=== PATIENT | female | born 1980 | race Caucasian/White ===

== ENCOUNTER → 2016-12-16 | Outpatient (CLI) | payer BC ==
--- NOTE | 2016-12-16 15:54 | RAD ---
EXAM: Thyroid ultrasound HISTORY: Thyroid nodule. COMPARISON: None. FINDINGS: Sonographic evaluation of the thyroid gland was performed. The right lobe measures 5.2 x 1.7 x 1.6 cm. The parenchyma is homogeneous without focal lesions. The left lobe measures 4.7 x 1.7 x 1.6 cm. A mostly cystic multiseptated nodule in the interpolar region measures 1.8 x 1.3 x 1.1 cm. There is only a small solid component at its inferior aspect. The isthmus measures 4 mm. A cystic greater than solid nodule along the left aspect of the isthmus measures 7 x 7 x 5 mm. IMPRESSION: 1. 1.8 x 1.3 cm mostly cystic nodule in the left thyroid lobe. This is most likely benign. A follow could be considered in 6-12 months if there is persistent concern. 2. A 7 mm nodule in the left aspect of the isthmus is also mostly cystic and likely benign.
== END | disposition home or self-care (01) ==
LOC: US 12:43 → MERGE 12:43
PROVIDERS: ATTEND Physician Assistant
DX: E05.10 Thyrotoxicosis with toxic single thyroid nodule without thyrotoxic crisis or storm (principal)
CPT/HCPCS: 76536

== ENCOUNTER 2018-11-22 19:02 | Emergency (ER) | payer BC ==
[~2018-11-22] VITALS: Ht 182.9 cm; Wt 113.4 kg
--- NOTE | 2018-11-22 20:09 | PHYS DOC ---
Past History Past Medical History: Cancer, Fibromyalgia, Other Additional Past Medical Histor: Left breast cancer, uterine ca, R.A. Past Surgical History: , Hysterectomy Additional Past Surgical Histo: L breast lump removal, Multiple laproscopy, multiple bilateral knee artho. Alcohol Use: Occasionally Drug Use: None Adult General Chief Complaint Chief Complaint: MECHANICAL FALL HPI HPI Patient is a 38 year old female who presents with complaint of left-sided neck and shoulder pain and left hip pain. Patient states that she experienced a fall down steps earlier today. She states that she is at the top of her stairs which were carpeted and notes that she took a misstep, causing her to fall back in the past absent slide down them. Notes that she slipped down approximately 20 steps to the floor. Landed on the left side of her hip and her shoulder. Did not hit head or lose consciousness. States that she is able to get herself up off of the floor independently and has been ambulating throughout the day. Notes that she has been having continued pain along the left lower back and left hip. Also notes pain along her left shoulder but does state that she is able to turn her head without difficulty. The patient was placed in a c-collar by the emergency department nurse during triage. States she has history of fibromyalgia and that she has had problems with pain in the past but has not had any problems with her left hip. She thus came to the emergency department to have this evaluated that she is concerned she may have caused a significant injury to this area. Review of Systems Review of Systems Constitutional: Denies fever or chills [] Eyes: Denies change in visual acuity, redness, or eye pain [] HENT: Denies nasal congestion or sore throat [] Respiratory: Denies cough or shortness of breath [] Cardiovascular: Denies chest pain or edema[] GI: Denies abdominal pain, nausea, vomiting, bloody stools or diarrhea [] : Denies dysuria or hematuria [] Musculoskeletal: Left hip pain, left shoulder pain[] Integument: Denies rash or skin lesions [] Neurologic: Denies headache, focal weakness or sensory changes [] All other systems were reviewed and found to be within normal limits, except as documented in this note. Allergies Allergies Allergies Coded Allergies Type Severity Reaction Last Updated Verified ibuprofen Adverse Reaction Unknown 11/22/18 Yes ketorolac Adverse Reaction Unknown 11/22/18 Yes Physical Exam Physical Exam Constitutional: Well developed, well nourished, no acute distress, non-toxic appearance. [] HENT: Normocephalic, atraumatic, bilateral external ears normal, oropharynx moist, no oral exudates, nose normal. [] Eyes: PERRLA, EOMI, conjunctiva normal, no discharge. [] Neck: Normal range of motion, no midline tenderness, mild left paraspinous muscle tenderness to palpation along distribution is trapezius muscle, supple, no stridor. [] Cardiovascular:Heart rate regular rhythm, no murmur [] Lungs & Thorax: Bilateral breath sounds clear to auscultation [] Abdomen: Bowel sounds normal, soft, no tenderness, no masses, no pulsatile masses. [] Skin: Warm, dry, no erythema, no rash. [] Back: No midline tenderness, left lower lumbar paraspinous muscle tenderness to palpation, tenderness over left greater trochanter, normal range of motion present in the left hip, mild tenderness along left trapezius muscle toward shoulder with normal range of motion present, distal pulses 2+ in all 4 extremities. [] Extremities: No tenderness, no cyanosis, no clubbing, ROM intact, no edema. [] Neurologic: Alert and oriented X 3, normal motor function, normal sensory function, no focal deficits noted. [] Current Patient Data Vital Signs Vital Signs Date Time Temp Pulse Resp B/P (MAP) Pulse Ox O2 Delivery O2 Flow Rate FiO2 11/22/18 19:14 98.2 100 16 98 Room Air Lab Results Not performed EKG EKG Not performed[] Radiology/Procedures Radiology/Procedures [address] [address] IMAGING REPORT Signed PATIENT: LIZA MEEHAN DACCOUNT: [id number] : 1980 LOCATION: ER AGE: 38 SEX: F EXAM STATUS: PRE ER ORD. PHYSICIAN: TREV VERDUZCO MD REASON: Fall today on stairs, left hip pain PROCEDURE: HIP LEFT 2V WITH PELVIS Single view pelvis and two-view left hip dated 11/22/2018. No comparison available. Clinical data indication: Pain after fall on stairs. FINDINGS: AP view pelvis and two-view left hip show normal bony alignment. No displaced fracture. The pelvic ring is intact. No periostitis or bone destruction. 2 views left hip show normal bony alignment. No displaced fracture. No acute osseous or articular abnormality. IMPRESSION: No acute radiographic abnormality. Electronically signed by: Jarek Brooke MD (11/22/2018 8:31 PM) [facility] DICTATED AND SIGNED BY: JAREK BROOKE MD DATE: 11/22/182030 CC: TREV VERDUZCO MD; JIMMIE DOMINGUEZ ~ [] Course & Med Decision Making Course & Med Decision Making Pertinent Labs and Imaging studies reviewed. (See chart for details) C-collar was cleared after examination. X-ray imaging of the left hip is negative. The patient displays no significant external signs of trauma. Sy mptoms appear consistent with contusion of the left hip and back. Patient prescribed Flexeril for continued outpatient treatment. Advised to take Tylenol as well for additional adjunct pain relief. Recommended follow-up with primary doctor in the next 2-3 days for reevaluation and return to emergency department for any worsening symptoms. Patient was understanding and in agreement with treatment plan.[] Dragon Disclaimer Dragon Disclaimer This electronic medical record was generated, in whole or in part, using a voice recognition dictation system. Departure Departure: Impression: Primary Impression: Contusion of left hip Additional Impressions: Left shoulder strain Low back pain Disposition: 01 HOME, SELF-CARE Condition: STABLE Referrals: JIMMIE DOMINGUEZ (PCP) Patient Instructions: Back Pain, Adult, Hip Pointer (Iliac Crest Contusion)- [facility] Additional Instructions: Follow-up with your primary doctor in the next 2-3 days for reevaluation. Return to the emergency department for any worsening symptoms. Scripts Cyclobenzaprine Hcl (CYCLOBENZAPRINE HCL) 10 Mg Tablet 1 TAB PO TID PRN for MUSCLE PAIN, #30 TAB Prov: TREV VERDUZCO MD 11/22/18 Problem Qualifiers Primary Impression: Contusion of left hip Encounter type: initial encounter Qualified Codes: S70.02XA - Contusion of left hip, initial encounter Additional Impressions: Left shoulder strain Encounter type: initial encounter Qualified Codes: S46.912A - Strain of unspecified muscle, fascia and tendon at shoulder and upper arm level, left arm, initial encounter Low back pain Chronicity: acute Back pain laterality: left Sciatica presence: without sciatica Qualified Codes: M54.5 - Low back pain TREV VERDUZCO MD Nov 22, 2018 20:09
--- NOTE | 2018-11-22 20:34 | RAD ---
Single view pelvis and two-view left hip dated 11/22/2018. No comparison available. Clinical data indication: Pain after fall on stairs. FINDINGS: AP view pelvis and two-view left hip show normal bony alignment. No displaced fracture. The pelvic ring is intact. No periostitis or bone destruction. 2 views left hip show normal bony alignment. No displaced fracture. No acute osseous or articular abnormality. IMPRESSION: No acute radiographic abnormality. Electronically signed by: Jarek Brooke MD (11/22/2018 8:31 PM) [facility]
[2018-11-22] MEDS ORDERED: CYCL-331 PO (20:46)
[2018-11-22 20:50] VITALS: BP 146/56
== END 2018-11-22 21:03 | disposition home or self-care (01) ==
LOC: ER 19:02
DX: S46.912A Strain of unspecified muscle, fascia and tendon at shoulder and upper arm level, left arm, initial encounter (principal); S70.02XA Contusion of left hip, initial encounter; M54.5 Low back pain; M79.7 Fibromyalgia; Z88.6 Allergy status to analgesic agent; Z88.8 Allergy status to other drugs, medicaments and biological substances; W10.8XXA Fall (on) (from) other stairs and steps, initial encounter; Y93.89 Activity, other specified; Y92.89 Other specified places as the place of occurrence of the external cause; Y99.8 Other external cause status
CPT/HCPCS: 73502; 99284

== ENCOUNTER 2020-09-04 18:09 | Emergency (ER) | payer BC ==
[~2020-09-04] VITALS: Ht 165.1 cm; Wt 127.7 kg
[~2020-09-04 18:09] MED LIST: CYCL-331 PO
[2020-09-04 18:25] VITALS: BP 130/95
--- NOTE | 2020-09-04 18:38 | PHYS DOC ---
Past History Past Medical History: Cancer, Fibromyalgia, Other Additional Past Medical Histor: Left breast cancer, uterine ca, R.A. Past Surgical History: , Hysterectomy Additional Past Surgical Histo: L breast lump removal, Multiple laproscopy, multiple bilateral knee artho. Alcohol Use: Occasionally Drug Use: None General Adult HPI: HPI: ".. I had this cut.. I got it on Tuesday... . and now it look s infected..." " My dog Aries was being over active... and I got scratched..." Patient is a 40 year old female who presents with above hx and complaints laceration to Rt ankle on friday 09/01. Now area swollen and red, with some drainage. Pt.is allergic to Bactrim and Sulfa. Did have Tetanus update 2018. No recent travel. No specific ill contacts. Normally healthy. Pt. follows with Dr. Dominguez Review of Systems: Review of Systems: Constitutional: Denies fever or chills Eyes: Denies change in visual acuity HENT: Denies nasal congestion or sore throat Respiratory: Denies cough or shortness of breath Cardiovascular: Denies chest pain or edema GI: Denies abdominal pain, nausea, vomiting, bloody stools or diarrhea : Denies dysuria Musculoskeletal: Denies back pain or joint pain Integument: Complains of Rt. ankle cellulitis Neurologic: Denies headache, focal weakness or sensory changes Endocrine: Denies polyuria or polydipsia Lymphatic: Denies swollen glands Psychiatric: Denies depression or anxiety Allergies: Allergies: Allergies Coded Allergies Type Severity Reaction Last Updated Verified ibuprofen Adverse Reaction Unknown 11/22/18 Yes ketorolac Adverse Reaction Unknown 11/22/18 Yes Physical Exam: PE: Constitutional: Moderated acute distress, non-toxic appearance. [] HENT: Normocephalic, atraumatic, bilateral external ears normal, oropharynx moist, no oral exudates, nose normal. [] Eyes: PERRLA, EOMI, conjunctiva normal, no discharge. [] Neck: Normal range of motion, no tenderness, supple, no stridor. [] Cardiovascular:Heart rate regular rhythm, no murmur [] Lungs & Thorax: Bilateral breath sounds clear to auscultation [] Abdomen: Bowel sounds normal, soft, no tenderness, no masses, no pulsatile masses. Obese Skin: Warm, dry, no erythema, no rash. Cellulitis Rt. ankle. Back: No tenderness, no CVA tenderness. [] Extremities: No tenderness, no cyanosis, no clubbing, ROM intact, Rt. ankle edema. [] No cording Neurologic: Alert and oriented X 3, normal motor function, normal sensory function, no focal deficits noted. [] Psychologic: Affect normal, judgement normal, mood normal. [] EKG: EKG: [] Radiology/Procedures: Radiology/Procedures: [] Heart Score: C/O Chest Pain: N/A Risk Factors: Risk Factors: DM, Current or recent (<one month) smoker, HTN, HLP, family history of CAD, obesity. Risk Scores: Score 0 - 3: 2.5% MACE over next 6 weeks - Discharge Home Score 4 - 6: 20.3% MACE over next 6 weeks - Admit for Clinical Observation Score 7 - 10: 72.7% MACE over next 6 weeks - Early Invasive Strategies Course & Med Decision Making: Course & Med Decision Making Pertinent Labs and Imaging studies reviewed. (See chart for details) Do warm salt water soaks or Epson salt soaks 4 times a day. Massage area of infected laceration with Polysporin afterwards. Take clindamycin 300 mg 3 times a day. Follow-up primary care. Return if any concerns. Impression: 1. Cellulitis right ankle 2. Laceration right ankle 8 cm-occurred on Mondays 7 5 [] Dragon Disclaimer: Dragon Disclaimer: This electronic medical record was generated, in whole or in part, using a voice recognition dictation system. Departure Departure: Referrals: JIMMIE DOMINGUEZ (PCP) Scripts Fluconazole (DIFLUCAN) 100 Mg Tablet 100 MG PO DAILY for daily, #3 TAB Prov: MAYRA SNELL MD 09/04/20 Clindamycin Hcl (CLINDAMYCIN HCL) 300 Mg Capsule 300 MG PO TID for cellulitis for 10 Days, #30 CAP Prov: MAYRA SNELL MD 09/04/20 Ruben Disclaimer This chart was dictated in whole or in part using Voice Recognition software in a busy, high-work load, and often noisy Emergency Department environment. It may contain unintended and wholly unrecognized errors or omissions. MAYRA SNELL MD Sep 04, 2020 18:38
[2020-09-04] MEDS ORDERED: CLINDAMYCIN HCL 150 MG CAPSULE PO ONE (19:00)
[2020-09-04] MEDS ORDERED: CLIN300C9 PO (19:04)
[2020-09-04] MEDS ORDERED: FLUC100T7 PO (19:04)
[2020-09-04] MEDS ORDERED: NEOMY/BACITR/POLYMYXIN OINT PACKET. TP ONE (19:15)
== END 2020-09-04 19:28 | disposition home or self-care (01) ==
LOC: ER 18:09
DX: S91.011A Laceration without foreign body, right ankle, initial encounter (principal); L03.115 Cellulitis of right lower limb; M79.7 Fibromyalgia; Z88.8 Allergy status to other drugs, medicaments and biological substances; Z88.6 Allergy status to analgesic agent; X58.XXXA Exposure to other specified factors, initial encounter; Y93.89 Activity, other specified; Y92.89 Other specified places as the place of occurrence of the external cause; Y99.8 Other external cause status
CPT/HCPCS: 99283

== ENCOUNTER 2020-09-18 10:28 | Emergency (ER) | payer BC ==
[~2020-09-18] VITALS: Ht 182.9 cm; Wt 129.8 kg
[~2020-09-18 10:28] MED LIST changes: +CLIN300C9 PO; +FLUC100T7 PO
--- NOTE | 2020-09-18 10:37 | PHYS DOC ---
Past History Past Medical History: Cancer, Fibromyalgia, Other Additional Past Medical Histor: Left breast cancer, uterine ca, R.A. Past Surgical History: Hysterectomy Alcohol Use: Occasionally Drug Use: None General Adult HPI: HPI: 40-year-old female past medical history of fibromyalgia, rheumatoid arthritis and uterine cancer status post hysterectomy, presents to the ED BIBEMS from work after pt collapsed to her knees in front of her boss, then fell to the floor. In ed pt c/o chest pain, "I'm so stressed out, I'm not sleeping." Reports stressors include a defiant 18 year old daughter "she's trying to kill me, she won't listen," and working a 90 hour work week. Patient states she has had anything to eat or drink today. Is prescribed Klonopin and atarex. Reports she is vaccinated from [employer]. No personal or family history of AAA, AAD, CTD (ehlos danlos or marfans), cardiac arrhythmias (need for AICD), CAD, sudden or unexplainable (under 50 years of age or with exertion), or clotting disorders. Review of Systems: Review of Systems: Constitutional: Denies fever or chills Eyes: Denies change in visual acuity HENT: Denies nasal congestion or sore throat Respiratory: Denies cough or shortness of breath Cardiovascular: Denies hemoptysis or lower extremity edema GI: Denies abdominal pain,bloody stools or diarrhea : Denies dysuria or vaginal bleeding Musculoskeletal: Denies back pain or joint pain or saddle anesthesia Integument: Denies rash or blistering lesions Neurologic: Denies headache, focal weakness or sensory changes Psychiatric: Denies depression, suicidal or homicidal ideations Allergies: Allergies: Allergies Coded Allergies Type Severity Reaction Last Updated Verified ibuprofen Adverse Reaction Unknown 11/22/18 Yes ketorolac Adverse Reaction Unknown 11/22/18 Yes Physical Exam: PE: Constitutional: Well developed, well nourished, no acute distress, non-toxic appearance. HENT: Normocephalic, atraumatic, no signs of head trauma Eyes: EOMI, conjunctiva normal, no discharge. Neck: Normal range of motion, supple, no midline neck pain Cardiovascular: S1/2 present, tachycardic on arrival Lungs & Thorax: Speaking in full sentences, bilateral equal chest rise, no tachypnea or increased work of breathing Abdomen: soft, no tenderness, Skin: Warm, dry, no erythema, no rash. [] Back: No midline tenderness, no CVA tenderness. [] Extremities: No tenderness, no cyanosis, Neurologic: Alert and oriented X 3, normal motor function, normal sensory function, no focal deficits noted. [] Psychologic: Affect normal, judgement normal, mood-anxious/tearful EKG: EKG: Since tachycardia 127 bpm, no axis deviation, QTC 481, T wave inversion lead III, no ST elevation or ST depression, S1Q3T3 present Radiology/Procedures: Radiology/Procedures: IMAGING REPORT Signed PATIENT: LIZA MEEHAN DACCOUNT: [id number] : 1980 LOCATION: ER AGE: 40 SEX: F EXAM STATUS: REG ER ORD. PHYSICIAN: SUYAPA TADEO DO REASON: cp PROCEDURE: PORTABLE CHEST 1V XR CHEST 1V 09/18/2020 11:05 AM INDICATION: Chest pain COMPARISON: None available TECHNIQUE: Portable frontal view of the chest is provided. FINDINGS: The cardiomediastinal silhouette is within normal limits. Lungs are clear. There are no significant pleural effusions. There is no pulmonary vascular congestion. No pneumothorax. No suspicious osseous abnormality. IMPRESSION: There is no acute cardiopulmonary process. Electronically signed by: Itzel Woodson MD (09/18/2020 11:18 AM) [id number] DICTATED AND SIGNED BY: ITZEL WOODSON MD DATE: 09/18/20 1117 CC: JIMMIE DOMINGUEZ; SUYAPA TADEO DO ~MTH0 0 Heart Score: C/O Chest Pain: Yes HEART Score for Chest Pain: HEART Score for Chest Pain Response (Comments) Value History Slighlty/Non-Suspicious 0 ECG Nonspecific Repolarizatio 1 Age < 45 0 Risk Factors 1 or 2 Risk Factors 1 Troponin < Normal Limit 0 Total 2 Risk Factors: Risk Factors: DM, Current or recent (<one month) smoker, HTN, HLP, family history of CAD, obesity. Risk Scores: Score 0 - 3: 2.5% MACE over next 6 weeks - Discharge Home Score 4 - 6: 20.3% MACE over next 6 weeks - Admit for Clinical Observation Score 7 - 10: 72.7% MACE over next 6 weeks - Early Invasive Strategies Course & Med Decision Making: Course & Med Decision Making Pertinent Labs and Imaging studies reviewed. (See chart for details) Upon reevaluation, present in ED, (patient consents to his/her/their knowledge and involvement in pts' medical care), reports patient is not sleeping much at night and is noncompliant with her medications. Patient and are asking for a work note -states she's being overworked, "I'm going to work myself to ." Patient denies any substance abuse-known methamphetamine, cocaine or alcohol use. Patient denies any active chest pain or shortness of breath. Repeat heart rate in the upper 90s, low 100s with blood pressure of 103/74. Patient is much more calm on reevaluation. Work note will be provided. Suspect stress related syncope in the setting of dehydration. Repeat HR 996-97 bpm. Low risk for mace. I do not suspect pulmonary embolus. I discussed CTA c hest with and patient -pt declines imaging stating her chest pain and shortness of breath is resolved. Will discharge home with strict ED return precautions for suicidal or homicidal ideations, chest pain, hemoptysis, syncope or near syncope, dyspnea or strokelike symptoms. Encouraged urgent outpatient follow-up with PMD and psychiatry. Life-threatening processes were considered but are low suspicion at this time, given history, physical exam and ED workup. Pt was educated on all prescription medications and adverse effects. All patient's questions were answered and pt was stable at time of discharge. Life/limb-threatening differential includes but is not limited to, acute myocardial infarction, aortic dissection, congestive heart failure, esophageal injury including rupture, surgical abdomen, arrhythmia, cardiomyopathy, myocarditis, pericarditis, peptic ulcer disease, pneumomediastinum, pneumonia, pneumothorax, pulmonary embolus, unstable angina, rib fracture, contusion, pericardial tamponade or effusion, traumatic injury including mediastinal hemorrhage or hematoma, or pulmonary contusion. I have spoken with the patient and/or caregivers. I explained the patient's condition, diagnoses and treatment plan based on the information available to me at this time. I have answered the patient and/or caregiver's questions and addressed any concerns. The patient and/or caregivers have a good understanding of patient's diagnosis, condition and treatment plan as can be expected at this point. Vital signs have been stable. Patient's condition is stable and appropriate for discharge from the emergency department. Patient will pursue further outpatient evaluation with primary care physician or other designated or consulting physician as outlined in the discharge instructions. The patient and/or caregivers are agreeable to this plan of care and follow-up instructions have been explained in detail. The patient and/or caregivers have received these instructions in written form and have expressed an understanding of the discharge instructions. The patient and/or caregivers are aware that any significant change of condition or worsening of symptoms should prompt immediate return to this or the closest emergency department or call to [facility]. Ruben Disclaimer: Nautal Disclaimer: This electronic medical record was generated, in whole or in part, using a voice recognition dictation system. Departure Departure: Impression: Primary Impression: Work-related stress Additional Impressions: Dehydration Insomnia Disposition: 01 HOME / SELF CARE / HOMELESS Condition: STABLE Referrals: JIMMIE DOMINGUEZ (PCP) [facility]-Dr. Downs or Dr. Sotelo in 1-2 days for re- evaluation [facility] [address] [place] [address] Patient Instructions: Anxiety and Panic Attacks, Dehydration, Adult, Insomnia Additional Instructions: FOLLOW UP WITH PSYCHIATRY: for definitive management of stress/anxiety [facility] [address] [facility] [place] [address] [facility] [address] [place] [address] Elizabeth RAMIREZ [address] , [facility] [address] [place] [address] EMERGENCY DEPARTMENT GENERAL DISCHARGE INSTRUCTIONS Thank you for coming to [facility] (ED) today and trusting us with you care. We trust that you had a positivie experience in our Emergency Department. If you wish to speak to the department management, you may call the director at [phone]. YOUR FOLLOW UP INSTRUCTIONS ARE FOLLOWS: 1. Do you have a private Doctor? If you do not have a private doctor, please ask for a resource list of physicians or clinics that may be able to assist you with follow up care. 2. The Emergency Physician has interpreted your x-rays. The X-Ray specialist will also review them. If there is a change in the findings, you will be notified in 48 hours when at all possible. 3. A lab test or culture has been done, your results will be reviewed and you will be notified if you need a change in treatment. ADDITIONAL INSTRUCTIONS AND INFORMATION: 1. Your care today has been supervised by a physician who is specially trained in emergency care. Many problems require more than one evaluation for a complete diagnosis and treatment. We recommend that you schedule your follow up appointment as recommended to ensure complete treatment of you illness or injury. If you are unable to obtain follow up care and continue to have a problem, or if your condition worsens, we recommend that you return to the ED. 2. We are not able to safely determine your condition over the phone nor are we able to give sound medical advice over the phone. For these safety reasons, if you call for medical advice we will ask you to come to the ED for further evaluation. 3. If you have any questions regarding these discharge instructions please call the ED at [phone]. SAFETY INFORMATION: In the interest of safety, wellness, and injury prevention; we encourage you to wear your sealbelt, if you smoke; quite smoking, and we encourage family to use a protective helmet for bicycling and other sporting events that present an increased risk for head injury. IF YOUR SYMPTOMS WORSEN OR NEW SYMPTOMS DEVELOP, OR YOU HAVE CONCERNS ABOUT YOUR CONDITION; OR IF YOUR CONDITION WORSENS WHILE YOU ARE WAITING FOR YOUR FOLLOW UP APPOINTMENT; EITHER CONTACT YOUR PRIMARY CARE DOCTOR, THE PHYSICIAN WHOSE NAME AND NUMBER YOU WERE GIVEN, OR RETURN TO THE ED IMMEDIATELY. SUYAPA TADEO DO Sep 18, 2020 10:37
[2020-09-18] MEDS ORDERED: IV NORMAL SALINE 1,000ML 1,000 ML IV SCH (10:45)
--- NOTE | 2020-09-18 11:20 | RAD ---
XR CHEST 1V 09/18/2020 11:05 AM INDICATION: Chest pain COMPARISON: None available TECHNIQUE: Portable frontal view of the chest is provided. FINDINGS: The cardiomediastinal silhouette is within normal limits. Lungs are clear. There are no significant pleural effusions. There is no pulmonary vascular congestion. No pneumothora x. No suspicious osseous abnormality. IMPRESSION: There is no acute cardiopulmonary process. Electronically signed by: Bernie Mccartney MD (09/18/2020 11:18 AM) [id number]
[2020-09-18 11:21] LABS: BASO # 0.3 x10^3/uL (0.0-0.2); BASO % 3 % (0-3); EOS # 0.2 x10^3/uL (0.0-0.7); EOS % 2 % (0-3); HEMATOCRIT 39.2 % (36.0-47.0); HEMOGLOBIN 13.3 g/dL (12.0-15.5); LYMPH # 2.9 x10^3/uL (1.0-4.8); LYMPH % 31 % (24-48); MEAN CORPUSCULAR HEMOGLOBIN 30 pg (25-35); MEAN CORPUSCULAR HGB CONC 34 g/dL (31-37); MEAN CORPUSCULAR VOLUME 89 fL (79-100); MONO # 0.6 x10^3/uL (0.0-1.1); MONO % 7 % (0-9); NEUT # 5.4 x10^3uL (1.8-7.7); NEUT % 57 % (31-73); PLATELET COUNT 297 x10^3/uL (140-400); RED BLOOD COUNT 4.39 x10^6/uL (3.50-5.40); RED CELL DISTRIBUTION WIDTH 13.6 % (11.5-14.5); WHITE BLOOD COUNT 9.4 x10^3/uL (4.0-11.0)
[2020-09-18 11:24] LABS: ALBUMIN 3.2 g/dL (3.4-5.0); ALBUMIN/GLOBULIN RATIO 0.9 (1.0-1.7); ALK PHOS 77 U/L (46-116); ALT (SGPT) 31 U/L (14-59); AST (SGOT) 20 U/L (15-37); BLOOD UREA NITROGEN 8 mg/dL (7-20); BUN/CREATININE RATIO 8 (6-20); CALCIUM 8.6 mg/dL (8.5-10.1); CARBON DIOXIDE 23 mmol/L (21-32); GFR 61.1; GLUCOSE 104 mg/dL (70-99); LIPASE 64 U/L (73-393); TOTAL BILIRUBIN 0.4 mg/dL (0.2-1.0); TOTAL PROTEIN 6.8 g/dL (6.4-8.2)
--- NOTE | 2020-09-18 12:43 | EKG ---
[address] [address] Test Date: 2020-09-18 Test Time: 10:31:14 Pat Name: LIZA MEEHAN Department: Room: Gender: F Accident Report Clerk: HARPAL : 1980 Requested By: SUYAPA TADEO Order Number: [id number] Reading MD: Measurements Intervals Casanova Rate: 123 P: -90 MO: 94 QRS: 46 QRSD: 84 T: 31 QT: 332 QTc: 481 Interpretive Statements SINUS TACHYCARDIA OTHERWISE NORMAL ECG RI6.02 No previous ECG available for comparison
[2020-09-18 12:44] LABS: AMPHETAMINE/METHAMPHETAMINE NEG (NEG); BARBITURATES NEG (NEG); BENZODIAZEPINES NEG (NEG); CANNABINOIDS NEG (NEG); COCAINE NEG (NEG); METHADONE NEG (NEG); OPIATES NEG (NEG); PHENCYCLIDINE NEG (NEG)
[2020-09-18 14:19] LABS: POTASSIUM ISTAT 3.8 mmol/L (3.5-5.0)
[2020-09-18 14:20] LABS: SODIUM ISTAT 143 mmol/L (135-145)
[2020-09-18 14:31] VITALS: BP 125/87
== END 2020-09-18 15:21 | disposition home or self-care (01) ==
LOC: ER 10:28
DX: E86.0 Dehydration (principal); G47.00 Insomnia, unspecified; Z56.3 Stressful work schedule; Z90.710 Acquired absence of both cervix and uterus
CPT/HCPCS: 36415; 71045; 80047; 80053; 80307; 82550; 83690; 83735; 84484; 85025; 93005; 96361; 96374; 99285; J2060; J7030